=== PATIENT | female | born 1965 | race Caucasian/White ===

== ENCOUNTER 2017-11-19 10:40 | Emergency (ER) | payer OTHER ==
[~2017-11-19] VITALS: Ht 162.6 cm; Wt 109.0 kg
[~2017-11-19 10:40] MED LIST: ASEN5TAB SL; ATEN-102 PO
[2017-11-19 10:49] VITALS: BP 167/111; PULSE 85; RESP 18; TEMP 98.7; O2SAT 98
[2017-11-19 11:07] VITALS: BP 169/91; PULSE 80; O2SAT 98
[2017-11-19] MEDS ORDERED: ATEN50TA PO (11:08)
--- NOTE | 2017-11-19 11:24 | PD ---
HPI Chief Complaint: Pain: Acute or Chronic Time Seen by Provider: 10:56 Travel History International Travel<30 days: No Contact w/Intl Traveler<30days: No Traveled to known affect area: No History of Present Illness HPI 52-year-old female presents to the emergency department with complaint of right hip pain that has been going on for the last couple months, and "probably longer ," and lower back pain for over one year. She has followed up with her primary care provider in regards to both of these complaints and says she has had 2 x- rays done, by her PCP, and they were normal, per the patient. Denies new or recent injury. Denies encopresis, incontinence, saddle anesthesias. Denies IV drug use or cancer. Denies fever, vomiting. Rates pain 5/10. Worse with sitting, walking, and says pain is constant. Better at rest. Has tried taking ibuprofen, meloxicam, aspirin for symptom management. Primary care provider is [employer]. Allergies as listed on the chart. History of hypertension and has not taken her medications today. Has no other medical complaints. No other modifying factors or associated signs and symptoms. PFSH Past Medical History Cardiovascular Problems: Yes Diminished Hearing: No Hypertension: Yes Psychiatric: Yes (SCHIZOPHRENIA) Schizophrenia: Yes Para: 1 Miscarriage: 1 Past Surgical History Other Surgery: Yes (ACHILES TENDON REPLACEMENT) Social History Alcohol Use: Yes (RARE) Tobacco Use: No Substance Use: No Allergies-Medications (Allergen,Severity, Reaction): Coded Allergies: haloperidol (Unverified Allergy, Severe, DYSTONIC, 11/19/17) sulfamethoxazole (Unverified Allergy, Severe, RASH, 11/19/17) trifluoperazine (Unverified Allergy, Severe, DYSTONIC, 11/19/17) trimethoprim (Unverified Allergy, Severe, RASH, 11/19/17) Uncoded Allergies: PANADOL (Adverse Reaction, Severe, NAUSEA AND ALMOST BLACKED OUT, 04/04/11) Reported Meds & Prescriptions Reported Meds & Active Scripts Active Reported Atenolol 50 Mg Tab 50 Mg PO DAILY Saphris 5 mg (Asenapine Maleate 5 mg) 5 Mg Sub Unknown Dose SL BID Review of Systems Except as stated in HPI: all other systems reviewed are Neg Physical Exam Narrative GENERAL: Well-nourished, well-developed femur patient, in no acute distress; afebrile, nontoxic-appearing SKIN: Warm and dry. HEAD: Atraumatic. Normocephalic. EYES: Pupils equal and round. No scleral icterus. No injection or drainage. ENT: Mucosa pink and moist. Airway patent. NECK: Trachea midline. CARDIOVASCULAR: Regular rate. RESPIRATORY: No accessory muscle use. GASTROINTESTINAL: Obese. MUSCULOSKELETAL: Bilateral lower extremities supple and non-tense with 2+ pedal pulses and sensory intact; with full range of motion and 5/5 strength. No tenderness on abduction of the right hip; right hip without tenderness on palpation; skin is without erythema, edema, ecchymosis. 2+ DTRs bilaterally. Active dorsiflexion and extension of bilateral feet. Bilateral straight leg raise is negative for low back pain. Ambulatory in room with normal gait. Sitting up in bed at 90. No obvious deformities. No clubbing. No cyanosis. No edema. BACK: No CVA tenderness. No midline point tenderness on palpation of the lumbar spine. I am unable to elicit any tenderness or pain on palpation of the lower back bilaterally. No obvious deformities. NEUROLOGICAL: Awake and alert. Oriented 3. No obvious cranial nerve deficits. Motor grossly within normal limits. Normal speech. Moves all extremities. 5/5 strength to all extremities. Sensory intact. PSYCHIATRIC: Appropriate mood and affect; insight and judgment normal. Data Data Last Documented VS Vital Signs Date Time Temp Pulse Resp B/P (MAP) Pulse Ox O2 Delivery O2 Flow Rate FiO2 11/19/17 11:07 80 169/91 (117) 98 Room Air 11/19/17 10:49 98.7 18 Orders Orders Urinalysis - C+S If Indicated (11/19/17 11:19) Ketorolac Inj (Toradol Inj) (11/19/17 11:30) Labs Laboratory Tests Test 11/19/17 11:25 Urine Color LIGHT-YELLOW Urine Turbidity CLEAR Urine pH 6.0 Urine Specific [place] 1.006 Urine Protein NEG mg/dL Urine Glucose (UA) NEG mg/dL Urine Ketones NEG mg/dL Urine Occult Blood NEG Urine Nitrite NEG Urine Bilirubin NEG Urine Urobilinogen LESS THAN 2.0 MG/DL Urine Leukocyte Esterase SMALL Urine WBC 2 /hpf Urine Squamous Epithelial Cells 6 /hpf Urine Transitional Epithelial Cells <1 /hpf Urine Bacteria MOD /hpf Urine Mucus FEW /lpf Microscopic Urinalysis Comment CULT NOT INDICATED MDM Medical Decision Making Medical Screen Exam Complete: Yes Emergency Medical Condition: Yes Medical Record Reviewed: Yes Differential Diagnosis Arthritis, sciatica, chronic low back pain Narrative Course 52-year-old female complaining of right hip pain and lower back pain. Has these complaints are chronic in nature and she is followed up with her primary care provider in regards to both complaints. She has had lower back x-rays which were normal, per the patient. Denies new or recent injury. Denies encopresis, incontinence, saddle anesthesias. Denies IV drug use or cancer. Patient is afebrile and nontoxic-appearing. Denies fever, vomiting. Neuro exam is unremarkable. I am unable to elicit any tenderness on palpation of the lower back. Patient says she was treated for a urinary tract infection a couple weeks ago. I will check urinalysis to rule out UTI/pyelonephritis. Urinalysis ordered. 1203: Urinalysis without signs of infection. Ibuprofen and Robaxin prescribed for home. Instructed patient to follow up with primary care provider. Patient verbalizes understanding and agreement with treatment plan. Patient is medically cleared and stable for discharge. Discussed reasons to return to the emergency department. Patient agrees with treatment plan. The patients vital signs are stable and the patient is stable for outpatient follow-up and treatment. Patient discharged home, stable and in no acute distress. Diagnosis Primary Impression: Chronic low back pain Qualified Codes: M54.5 - Low back pain; G89.29 - Other chronic pain Additional Impression: Right hip pain Referrals: Primary Care Physician Patient Instructions: Acute Low Back Pain (ED), General Instructions, Hip Pain (ED) Additional Instructions: Tylenol or ibuprofen as directed and as needed for pain Robaxin as prescribed and as needed for muscle spasms Heating pad and/or ice to affected area to reduce pain Avoid aggravating activities; increase activity as tolerated Follow-up with primary care provider Return to emergency department immediately with worsening of symptoms Med/Other Pt SpecificInfo: Prescription(s) given Scripts Methocarbamol (Robaxin) 500 Mg Tab 500 MG PO QID Y for MUSCLE SPASM, #20 TAB 0 Refills Prov: Julisa WardP 11/19/17 Ibuprofen (Ibuprofen) 800 Mg Tab 800 MG PO Q6HR Y for PAIN, #20 TAB 0 Refills Prov: Julisa Ward 11/19/17 Disposition: 01 DISCHARGE HOME Condition: Stable Julisa Ward November 19, 2017 11:24
[2017-11-19] MEDS ORDERED: KETOROLAC TROMETHAMINE 60 MG/2 ML (IM) VIAL IM ONE (11:30)
[2017-11-19 11:55] LABS: BACTERIA, URINE MOD /hpf; BILIRUBIN, URINE NEG (NEG); BLOOD, URINE NEG (NEG); GLUCOSE,URINE NEG (NEG); KETONE, URINE NEG (NEG); MUCUS URINE FEW /lpf (OCC); NITRITE,URINE NEG (NEG); SQUAMOUS EPITHELIAL CELL URINE 6 /hpf (0-5); TRANSITIONAL EPI CELLS, URINE <1 /hpf; URINE COLOR LIGHT-YELLOW (YELLW/STRAW); URINE LEUKOCYTE ESTERASE SMALL (NEG)
[2017-11-19] MEDS ORDERED: ROBA500T PO (12:07)
[2017-11-19] MEDS ORDERED: IBUP1TAB7 PO (12:07)
== END 2017-11-19 12:27 | disposition home or self-care (01) ==
LOC: NEPD 10:40
DX: M54.5 Low back pain (principal); G89.29 Other chronic pain; M25.551 Pain in right hip; I10 Essential (primary) hypertension
CPT/HCPCS: 81001; 96372; 99283; J1885